=== PATIENT | male | born 1940 | race Caucasian/White ===

== ENCOUNTER 2016-11-19 11:10 | Outpatient (CLI) | payer OTHER ==
[2016-11-19 14:38] LABS: EOSINOPHILS % 2.7 % (0.0-6.8); LYMPHOCYTES # 1.8 # k/uL (0.6-4.0); MEAN CORPUSCULAR HEMOGLOBIN 28.6 pg (28.0-34.0); MONOCYTES # 0.4 # k/uL (0.0-0.9); MONOCYTES % 5.8 % (0.0-11.0); NEUTROPHILS # 3.4 # k/uL (1.4-7.7)
[2016-11-19 14:44] LABS: eGFR (African) > 60; eGFR (Non-African) > 60
== END 2016-11-19 11:15 ==
LOC: LAB 11:10
PROVIDERS: ATTEND Internal Medicine Cardiovascular Disease
DX: I25.10 Atherosclerotic heart disease of native coronary artery without angina pectoris (principal)
CPT/HCPCS: 36415; 80053; 80061; 83036; 84443; 85025

== ENCOUNTER 2018-10-03 07:09 | Inpatient (IN) | payer OTHER ==
[2018-10-03 08:01] LABS: MEAN CORPUSCULAR HEMOGLOBIN 29.5 pg (28.0-34.0)
[2018-10-03] MEDS ORDERED: 0.9 % SODIUM CHLORIDE 500 ML IV ONE (08:04)
--- NOTE | 2018-10-03 08:32 | ED Physician Documentation ---
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 pt presents to the ED via POV c/o weakness. pt reports he has had decreased oral intake x 4 days. pt developed n/v after eating a coney dog from [employer] 4 days ago. pt had an episode of vomiting that day and has been nauseated since. pt reports decreased urination. pt denies pain at this time stating "i just feel bad all over" pt denies current chest pain, dyspnea, syncope/near syncope, headache, dizziness, visual disturbances, diarrhea, fever/chills, rash, sick contacts, dysuria, trauma. melena or hematochezia, bleeding or easy bruising, change in bowel or bladder function. anxiety or depression. ROS Negative unless otherwise specified. Dr Sanchez PCP. Dr Coronel manager distribution [place]. - ROS CONST: weakness EYES/ENT: denies: sore throat, nasal drainage, nasal congestion CVS/RESP: denies: chest pain, shortness of breath, cough GI/: nausea. denies: abdominal pain, problems urinating, vomiting, diarrhea MS/SKIN/LYMPH: none NEURO/PSYCH: difficulty walking. denies: headache, fainting, dizziness, tingling, numbness - PAST HX Past History: hypertension, other (anxiety) Surgeries/Procedures: other (cardiac stents) Allergies/Adverse Reactions: Allergies Allergy/AdvReac Type Severity Reaction Status Date / Time No Known Drug Allergies Allergy Verified 10/03/18 08:38 Home Medications: Ambulatory Orders Medication Instructions Recorded Baclofen #360 06/15/13 Ropinirole HCl #30 06/15/13 - SOCIAL HX Smoking History: non-smoker Alcohol Use: none Drug Use: none - FAMILY HX Family History: Yes - REVIEWED ASSESSMENTS Nursing Assessment Reviewed: Yes Vitals Reviewed: Yes Progress - EKG/XRAY/CT EKG: NSR, no ST T wave changes (no st elevation/depression. no ectopy) Comments: 0823-normal interval, axis, QRS. normal sinus rhythm interp by me ED Results Lab/Radiology - Radiology Radiology Impressions: Report Submission Date: Oct 03, 2018 9:43:45 AM LABORATORY ASST Patient Study Name: SABINO LONDON Date: Oct 03, 2018 8:42:57 AM LABORATORY ASST Modality Type: DX Gender: M Description: ABDOMEN : 40 Institution: [facility] Physician: BANDAR GARCIA Examination: Obstruction series History: Abdominal discomfort Findings: 3 views obtained of the abdomen. No abnormal dilation of the large or small bowel. Air and stool throughout the large bowel. No suspicious calcification projecting over the renal fossa or the lower pelvic region. Calcific densities right lower quadrant. Osseous structures demonstrate degenerative spurring. Impression: Normal appearing amount of large bowel stool. No obstruction. Electronically signed on Oct 03, 2018 9:43:45 AM LABORATORY ASST by: Martinez Gallegos Report Submission Date: Oct 03, 2018 9:42:15 AM LABORATORY ASST Patient Study Name: SABINO LONDON Date: Oct 03, 2018 8:35:35 AM LABORATORY ASST Modality Type: DX Gender: M Description: CHEST : 40 Institution: [facility] Physician: BANDAR GARCIA Examination: Portable chest History: Evaluate lungs Comparison exam: None provided. Findings: Single view of the chest demonstrates a normal cardiac and mediastinal silhouette. Bibasilar haziness. No definite blunting of the costophrenic margins. articular degenerative changes. Impression: Bibasilar haziness. No gross effusion. Electronically signed on Oct 03, 2018 9:42:15 AM LABORATORY ASST by: Martinez Gallegos - Orders Orders: ED Orders Category Date Time Status CBC/PLATELET/DIFF Stat Lab 10/03/18 07:47 Ordered CMP [CMP] Stat Lab 10/03/18 07:47 Ordered UA W MICRO [UA W/MICRO IF INDICATED] Stat Lab 10/03/18 07:48 Ordered General Adult Physical Exam - PHYSICAL EXAM GENERAL APPEARANCE: no distress EENT: eye inspection normal, ENT inspection normal, pharynx normal, ANNEMARIE, no nystagmus, TM's nml NECK: normal inspection, thyroid normal RESPIRATORY: no resp distress, chest non-tender, other (diminished) ABDOMEN: soft, no organomegaly, normal bowel sounds, no abdominal bruit, no distension. 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
[2018-10-03 08:39] LABS: eGFR (Non-African) > 60
[2018-10-03 09:00] LABS: MONOCYTES % 3 % (0-11); SEGMENTED NEUTROPHILS % 73 % (39-79)
[2018-10-03 09:01] LABS: BASOPHILS % 0 % (0-2); EOSINOPHILS % 0 % (0-7); TOXIC GRANULATION PRESENT
[2018-10-03] MEDS ORDERED: AZITHROMYCIN 500 MG in 0.9 % SODIUM CHLORIDE 250 ML IV SCH (11:00)
[2018-10-03] MEDS ORDERED: 0.9 % SODIUM CHLORIDE 1,000 ML IV SCH (11:00)
[2018-10-03] MEDS ORDERED: cefTRIAXone SODIUM 1 GM in 0.9 % SODIUM CHLORIDE(MINIBAG+ 50 ML IV SCH (11:00)
[2018-10-03] MEDS ORDERED: SODIUM CHLORIDE 0.9% IV ONE (12:01)
[2018-10-03] MEDS ORDERED: CEFTRIAXONE SODIUM IV ONE (12:01)
[2018-10-03] MEDS ORDERED: cefTRIAXone SODIUM 1 GM INJ ONE (12:17)
[2018-10-03] MEDS ORDERED: 0.9 % SODIUM CHLORIDE 100 ML IV ONE (12:18)
--- NOTE | 2018-10-03 12:18 | Diagnostic Imaging Report ---
BANDAR GARCIA [facility] [address] [facility] [address] [address] Report Submission Date: Oct 03, 2018 9:42:15 AM INSULATION SUPERVISOR Patient Study Name: SABINO LONDON Date: Oct 03, 2018 8:35:35 AM INSULATION SUPERVISOR Modality Type: DX Gender: M Description: CHEST : 40 Institution: [facility] Physician: BANDAR GARCIA Examination: Portable chest History: Evaluate lungs Comparison exam: None provided. Findings: Single view of the chest demonstrates a normal cardiac and mediastinal silhouette. Bibasilar haziness. No definite blunting of the costophrenic margins. articular degenerative changes. Impression: Bibasilar haziness. No gross effusion. Electronically signed on Oct 03, 2018 9:42:15 AM INSULATION SUPERVISOR by: Martinez YADAV
--- NOTE | 2018-10-03 12:19 | Diagnostic Imaging Report ---
BANDAR GARCIA [facility] [address] [facility] [address] [address] Report Submission Date: Oct 03, 2018 9:43:45 AM FILLER IN Patient Study Name: SABINO LONDON Date: Oct 03, 2018 8:42:57 AM FILLER IN Modality Type: DX Gender: M Description: ABDOMEN : 40 Institution: [facility] Physician: BANDAR GARCIA Examination: Obstruction series History: Abdominal discomfort Findings: 3 views obtained of the abdomen. No abnormal dilation of the large or small bowel. Air and stool throughout the large bowel. No suspicious calcification projecting over the renal fossa or the lower pelvic region. Calcific densities right lower quadrant. Osseous structures demonstrate degenerative spurring. Impression: Normal appearing amount of large bowel stool. No obstruction. Electronically signed on Oct 03, 2018 9:43:45 AM FILLER IN by: Martinez YADAV
[2018-10-03] MEDS ORDERED: ENOXAPARIN SODIUM 30 MG/0.3 ML DISP.SYRIN SQ SCH (13:00)
--- NOTE | 2018-10-03 16:58 | Diagnostic Imaging Report ---
[facility]MED SURG [facility] [address] [facility] [address] [place] [address]. [id number] Report Submission Date: Oct 03, 2018 4:54:49 PM COLLAR TURNER Patient Study Name: SABINO LONDON Date: Oct 03, 2018 4:12:09 PM COLLAR TURNER Modality Type: CT\SR Gender: M Description: CT ABD PELVIS W/ CON : 40 Institution: [facility] Physician: [facility]/MED SURG CT abdomen and pelvis with contrast. History: Right upper quadrant abdominal pain. Technique: Transaxial computed tomographic images of the abdomen and pelvis were obtained with the use of intravenous contrast according to standard protocol. Findings: Mild bibasilar atelectasis is present. The liver is normal. There is diffuse gallbladder distention with wall thickening and stone in the neck of the gallbladder. There is pericholecystic stranding. Findings are consistent with acute cholecystitis. No biliary ductal dilation. The pancreas spleen adrenal glands and bilateral kidneys are largely unremarkable with bilateral renal cyst present. No bowel wall thickening or dilation is present. Atherosclerosis is present of the aorta. No adenopathy is present. The bladder is mildly distended. No free fluid is seen in the pelvis. Mild degenerative changes seen in the lower lumbar spine. Impression: 1. Acute cholecystitis with gallbladder distention wall thickening and pericholecystic stranding. Stone is present within the gallbladder neck. 2. No biliary dilation. 3. Urinary bladder distention. Electronically signed on Oct 03, 2018 4:54:49 PM COLLAR TURNER by: Chai YADAV
[2018-10-03] MEDS ORDERED: BACLOFEN 10 MG TABLET PO SCH (17:00)
[2018-10-03 17:13] LABS: APPEARANCE,URINE CLEAR (CLEAR); COLOR,URINE YELLOW (YELLOW)
[2018-10-03 17:14] LABS: OCCULT BLOOD,URINE 3+ (NEGATIVE); UROBILINOGEN URINE 0.2 Eu (0.2-1.0)
[2018-10-03 18:06] VITALS: BP 122/56
--- NOTE | 2018-10-03 19:03 | History and Physical Report ---
History of Present Illnes - History of Present Illness Reason for Visit: Abd pain History of Present Illness: 77yo white male who sates that on Saturday of this week after eating a hot dog he developed some severe upper adb pain. Discribes it as intense aching and mild cramping. Patient states that the pain got some better but has been waxing and wain since that time. Nothing seems to help with the pain. Sometimes drinking something will make it worse. Has not been eating much solid food since that time. He has been nauseated some but has not been vomiting. He has not had any jaundice, or change in color of his stools. Patient denies any fever or chills. Today the pain was not improving and he decided to have it evaluated. In the ED he was found to have an elevated WBC of 20,000 with a left shift and was admitted. 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) - Past Surgical History Past Surgical History: Other (Cardiac stent one vessel, BKA LLE, s/p right rotator cuff repair) - Past Family History Mother Family History: CAD, CVA, Father Family History: CAD, , Other (Heriditary Spastic paraplegia) - Past Social History Smoke: No Occupation: retired Alcohol: None Drugs: None Lives: Alone Domestic Violence: Negative - Health Maintenance Health Maintenance: Cholesterol, Influenza Vaccine, Pneumococcal Vaccine (Prevnar February 2013) Influenza Vaccine: Current for this Influenza Season Pneumonia Vaccine: Yes Resuscitation Status: Resusciation Status Resuscitation Status Full Code - Unable to Obtain History Unable to Obtain: No Review of Systems - Review of Systems Constitutional: Sweats. negative: Fever, Chills Eyes: negative: pain ENT: negative: Ear Pain, Nose Discharge, Nose Congestion, Mouth Pain, Mouth Swelling, Throat Pain, Throat Swelling Respiratory: negative: Cough, Dry, Shortness of Breath, Hemoptysis, SOB with Excertion, Pleuritic Pain, Sputum, Wheezing Cardiovascular: negative: Chest Pain, Palpitations Gastrointestinal: Nausea, Abdominal Pain, Constipation. negative: Vomiting, Diarrhea, Melena, Hematochezia Genitourinary: negative: Dysuria, Frequency, Incontinence, Retention Musculoskeletal: Back Pain Skin: negative: Rash, Jaundice Neurological: negative: Weakness, Numbness, Confusion, Seizures - Medications/Allergies Allergies/Adverse Reactions: Allergies Allergy/AdvReac Type Severity Reaction Status Date / Time No Known Drug Allergies Allergy Verified 10/03/18 08:38 Current Inpatient Medications: Current Inpatient Medications Aspirin (Ecotrin) 325 mg PO DAILY [facility] Baclofen (Lioresal) 10 mg PO Q4 [facility] Enoxaparin Sodium (Lovenox) 30 mg SQ QD [facility] Stop: 10/16/18 13:01 Sodium Chloride (Normal Saline) 1,000 mls @ 100 mls/hr IV Q10H [facility] Last Admin: 10/03/18 14:18 Dose: 100 mls/hr Azithromycin 500 mg/ Sodium (Chloride) 250 mls @ 125 mls/hr IV Q24H [facility] Stop: 10/13/18 10:59 Ceftriaxone Sodium 1 gm/ (Sodium Chloride) 50 mls @ 100 mls/hr IV Q24H [facility] Last Admin: 10/03/18 14:20 Dose: 100 mls/hr Lorazepam (Ativan) 0.5 mg PO BID [facility] Exam - Exam Vital Signs: Vital Signs (72 hours) 10/03/18 10/03/18 07:51 18:00 Temperature 99.1 F 99.4 F Pulse Rate [ 73 Left Pulse ox] Pulse Rate [ 80 Right] Respiratory 18 20 Rate Blood Pressure 104/56 122/56 [Right Arm] O2 Sat by Pulse 94 93 Oximetry General: Alert, Oriented to Person, Oriented to Place, Oriented to Time, Cooperative, Mild distress HEENT: Atraumatic, PERRLA, EOMI, Mouth Mucous membr. moist/Conception, Nose Mucous membr. moist/Conception Neck: Normal Range of Motion Carotids: WNL Thyroid: WNL Lungs: Clear to auscultation, Normal air movement, Speaks full Sentences Cardiovascular: Regular rate, Normal S1, Normal S2, No murmurs Abdomen: Soft, No hepatospenomegaly, No masses, Other (Tenderness in the RUQ area, mild guarding, no rebound tenderness noted.), Decreased Bowel Sounds. No: Distended Integumentary: Normal, Conception, Warm, Dry Extremities: No clubbing, No cyanosis, No edema, Normal pulses, No tenderness/swelling Neurological: Normal gait, Normal speech, Strength Equal Bilat, Normal tone, Sensation intact, Cranial nerves 3-12 NL Psych/Mental Status: Mental status NL, Mood NL, Appropriate Affect, Intact J udgment - Laboratory Results Laboratory Results: Laboratory Results 10/03/18 10/03/18 10/03/18 07:47 17:00 Unknown WBC 20.50 H RBC 4.26 Hgb 12.6 Hct 38.3 MCV 90.0 MCH 29.5 MCHC 32.8 RDW 13.1 Plt Count 200 Seg Neutrophils % 73 Band Neutrophils % 12 Lymphocytes % 8 L Monocytes % 3 Eosinophils % 0 Basophils % 0 Metamyelocytes % 2 H Myelocytes % 2 H Toxic Granulation Present Poikilocytosis 1+ H PT INR Sodium 127 L Potassium 3.7 Chloride 96 L Carbon Dioxide 26 BUN 19 Creatinine 1.10 Estimated Creat Clear 66 Est GFR ( Amer) > 60 Est GFR (Non-Af Amer) > 60 Glucose 119 H Lactate Calcium 8.5 Total Bilirubin 0.9 AST 36 ALT 39 Alkaline Phosphatase 90 Troponin I NT-Pro-B Natriuret Pep Total Protein 6.4 Albumin 3.2 L Lipase Urine Color Yellow Urine Appearance Clear Urine pH 7.0 Ur Specific [place] 1.010 Urine Protein 2+ H Urine Ketones 2+ H Urine Occult Blood 3+ H Urine Nitrite Negative Urine Bilirubin Negative Urine Urobilinogen 0.2 Ur Leukocyte Esterase Negative Urine RBC In School Suspension Coordinator Urine Glucose Negative 10/03/18 10/03/18 10/03/18 Unknown Unknown Unknown WBC RBC Hgb Hct MCV MCH MCHC RDW Plt Count Seg Neutrophils % Band Neutrophils % Lymphocytes % Monocytes % Eosinophils % Basophils % Metamyelocytes % Myelocytes % Toxic Granulation Poikilocytosis PT 10.4 INR 0.99 Sodium Potassium Chloride Carbon Dioxide BUN Creatinine Estimated Creat Clear Est GFR ( Amer) Est GFR (Non-Af Amer) Glucose Lactate 1.7 Calcium Total Bilirubin AST ALT Alkaline Phosphatase Troponin I < 0.03 L NT-Pro-B Natriuret Pep 781.7 H Total Protein Albumin Lipase Urine Color Urine Appearance Urine pH Ur Specific [place] Urine Protein Urine Ketones Urine Occult Blood Urine Nitrite Urine Bilirubin Urine Urobilinogen Ur Leukocyte Esterase Urine RBC Urine Glucose 10/03/18 Unknown WBC RBC Hgb Hct MCV MCH MCHC RDW Plt Count Seg Neutrophils % Band Neutrophils % Lymphocytes % Monocytes % Eosinophils % Basophils % Metamyelocytes % Myelocytes % Toxic Granulation Poikilocytosis PT INR Sodium Potassium Chloride Carbon Dioxide BUN Creatinine Estimated Creat Clear Est GFR ( Amer) Est GFR (Non-Af Amer) Glucose Lactate Calcium Total Bilirubin AST ALT Alkaline Phosphatase Troponin I NT-Pro-B Natriuret Pep Total Protein Albumin Lipase 67 Urine Color Urine Appearance Urine pH Ur Specific [place] Urine Protein Urine Ketones Urine Occult Blood Urine Nitrite Urine Bilirubin Urine Urobilinogen Ur Leukocyte Esterase Urine RBC Urine Glucose Assessment/Plan - Assessment/Plan (1) Acute cholecystitis Status: Acute Current Visit: Yes (2) Hypertension Status: Chronic Current Visit: Yes Qualifiers: Hypertension type: essential hypertension Qualified Code(s): I10 - Essential (primary) hypertension (3) Familial spastic paraplegia Status: Chronic Current Visit: Yes Assessment: Follows Dr Alegria (4) ASHD (arteriosclerotic heart disease) Status: Chronic Current Visit: Yes Assessment: stable, follows Dr Coronel (5) Lumbar spinal stenosis Status: Acute Current Visit: Yes Assessment: stable, follows [employer] IncDr Raji José VTE Assessment - RISK FACTOR SCORE VTE RISK FACTOR SCORES: AGE OVER 60 YEARS, ANTICIPATED BED CONFINEMENT OR IMMOBILIZATION > 24 HOURS - RISK VTE MODERATE RISK: SCORE OF 2 (RISK PROXIMAL DVT 2-4%) PROPHYAXIS NEEDED
[2018-10-03] MEDS ORDERED: metroNIDAZOLE/SODIUM CHLORIDE 500 MG in PREMIX BAG 1 BAG IV SCH (19:30)
--- NOTE | 2018-10-03 19:34 | Discharge Summary ---
Discharge Summary - Discharge Sumary Condition at Discharge: Stable Home Medications: Ambulatory Orders Medication Instructions Recorded Baclofen #360 06/15/13 Ropinirole HCl #30 06/15/13 Consultations this Visit: None Procedures this Visit: None Allergies/Adverse Reactions: Allergies Allergy/AdvReac Type Severity Reaction Status Date / Time No Known Drug Allergies Allergy Verified 10/03/18 08:38 Patient Problems: Current Active Problems Problem Status Onset Acute cholecystitis Acute Dehydration Acute Lumbar spinal stenosis Acute Sepsis Acute ASHD (arteriosclerotic heart disease) Chronic Familial spastic paraplegia Chronic Hypertension Chronic Discharge Summary: Patient admitted to acute care to work-up abdominal pain with leukocytosis. A cat scan of the abd was done and patient was found to have acute cholecystitis with stone in the neck of the bladder. After Conferring with Dr Horton it was elected to transfer patient to [facility] for further evaluation and treatment. Patient was transferred in stable condition. 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 Troponin within normal range (5) Lumbar spinal stenosis Problems: stable at baseline
[2018-10-03] MEDS ORDERED: LIDOCAINE Urojet 5 ML JEL MM ONE (19:48)
[2018-10-03] MEDS ORDERED: metroNIDAZOLE/SODIUM CHLORIDE 100 ML IV ONE (19:55)
[2018-10-03 19:59] VITALS: BMI 28.3
[2018-10-03] MEDS ORDERED: LORazepam 0.5 MG TABLET PO SCH (21:00)
[2018-10-04] MEDS ORDERED: ASPIRIN EC 325 MG TABLET.DR PO SCH (09:00)
== END 2018-10-03 21:08 | disposition short-term general hospital (02) | DRG 444 ==
LOC: ED 07:09 → SOUTH 11:39
PROVIDERS: ADMIT Family Medicine; ATTEND Family Medicine
DX: K80.20 Calculus of gallbladder without cholecystitis without obstruction (principal); A41.9 Sepsis, unspecified organism; N30.00 Acute cystitis without hematuria; I10 Essential (primary) hypertension; I25.10 Atherosclerotic heart disease of native coronary artery without angina pectoris
CPT/HCPCS: 71045; 74019; 74177; 80053; 81002; 83605; 83690; 83735; 83880; 84484; 85025; 85610; 87040; 99284; 99285; J0696; J3490; J7060; J7030; Q9967; S1016

== ENCOUNTER 2019-09-07 10:14 | Outpatient (CLI) | payer OTHER ==
[2019-09-07 11:04] LABS: HDL 44 mg/dL (>40); eGFR (Non-African) 59
== END 2019-09-07 10:19 ==
LOC: LAB 10:14
PROVIDERS: ATTEND Family Medicine
DX: I25.10 Atherosclerotic heart disease of native coronary artery without angina pectoris (principal)
CPT/HCPCS: 36415; 80053; 80061